=== PATIENT | male | born 1985 ===

== ENCOUNTER 2020-09-08 18:24 | Emergency (ER) | payer OTHER, SELFPAY ==
--- NOTE | ~2020-09-08 | XR_ITS ---
EXAMINATION: XR HAND, RIGHT CLINICAL INFORMATION: Right pinky finger injury COMPARISON: None TECHNIQUE: PA, lateral, and oblique views of the right hand. FINDINGS: The small finger is dorsomedially dislocated at the level of the PIP joint with 5 mm of foreshortening no acute fractures are identified. The proximal and middle phalanges appear intact. No additional malalignment. Joints appear relatively well-preserved. XR/XR hand RT min 3V IMPRESSION: Dorsal/ulnar dislocation of the small finger occurring at the PIP joint.
[2020-09-08 18:25] VITALS: BP 129/82; PULSE 78; RESP 18; TEMP 36.6; O2SAT 96; BMI 36.1
[2020-09-08] MEDS: Lidocaine HCl 1 % MPF 5 ML VIAL SUBCUT ×2 (19:31)
--- NOTE | 2020-09-08 20:16 | ED.LOWEXIN ---
HPI - Extremity Injury (Lower) General Chief Complaint: Extremity Injury, Lower Stated Complaint: finger inj Time Seen by Provider: 09/08/20 19:15 History of Present Illness HPI Narrative: Patient complains of dislocated left pinky in football, no numbness or weakness no tingling no other injury Related Data Previous Rx's Medication Instructions Recorded nebulizer accessories (A.I.R.S #1 ea 06/18/20 Nebulizer Replacement) Allergies Allergy/AdvReac Type Severity Reaction Status Date / Time No Known Allergies Allergy Verified 09/08/20 18:25 Review of Systems Review of Systems: Positive for pinky dislocation Negatives are no head injury no neck pain no chest pain no shortness of breath no abdominal pain no numbness weakness or tingling Yes all other systems are reviewed and are negative PMFSH Past Medical History Source: nursing notes reviewed Medical History (Updated 09/09/20 @ 00:01 by Jeison Subramanian) Asthma Social History Social History Advance Directives: No Advance Directives Information Provided: No Physical Exam Vital Signs: Vital Signs: Last Vital Signs Temp 97.8 F 09/08/20 18:25 Pulse 78 09/08/20 18:25 Resp 18 09/08/20 18:25 BP 129/82 09/08/20 18:25 Pulse Ox 96 09/08/20 18:25 Body Mass Index 36.1 General appearance is no acute distress Head is normocephalic atraumatic Neck supple nontender Respiratory no distress Chest wall no tenderness Back full range of motion Left pinky exam shows a dislocation, neurovascular intact distal Other extremities no swelling deformity, full range of motion and gait is normal Course Course Course Narrative: X-ray showed a dorsal ulnar dislocation of the left pinky at the PIP joint Digital block with 6 cc of lidocaine was done and then using traction the finger was put back in its place, range of motion was normal after neurovascular intact after and an aluminum foam splint was applied Discharge Plan Discharge Clinical Impression: Dislocated finger Patient Disposition: Home, Self-Care Additional Instructions: The finger is back in place follow with orthopedic hand doctor Return any time any concerns Prescriptions: No Action (DME) A.I.R.S Nebulizer Replacement Kit See Rx Instructions .ROUTE .MEDSUPPLY Qty: 1 RF: 0 Referrals: Meenu Woody MD [Physician] - 2 days (Dislocated finger, reduced) Interventions: ED Discharge Assessment Last Done: 09/08/20 20:41 Discharge Date/Time: 09/08/20 20:43
== END 2020-09-08 20:43 | disposition home or self-care (01) ==
PROVIDERS: Emergency Provider Emergency Medicine Emergency Medical Services; PCP Internal Medicine
DX: S63.256A Unspecified dislocation of right little finger, initial encounter (principal); W50.0XXA Accidental hit or strike by another person, initial encounter; Y93.61 Activity, american tackle football; Y92.9 Unspecified place or not applicable; Y99.9 Unspecified external cause status
CPT/HCPCS: 26770; 73130; 99283; 99284

== ENCOUNTER 2020-10-11 06:02 | Emergency (ER) | payer OTHER, SELFPAY ==
--- NOTE | ~2020-10-11 | XR_ITS ---
EXAMINATION: XR CHEST CLINICAL INFORMATION: Shortness of breath. Upper back pain. COMPARISON: None TECHNIQUE: Frontal portable view of the chest was obtained. 6:20 AM FINDINGS: No significant abnormality is noted involving the heart, lungs, mediastinum, bony thorax or soft tissues. XR/XR chest 1V IMPRESSION: Unremarkable examination.
[2020-10-11 06:17] VITALS: BP 128/78; PULSE 72; RESP 16; TEMP 36.4; O2SAT 97; BMI 37.8
[2020-10-11 07:00] LABS: COVID-19 Test Negative (Negative)
--- NOTE | 2020-10-11 07:07 | ED_ITS ---
HPI - General Adult General Chief complaint: Dyspnea Stated complaint: back pain/SOB Time Seen by Provider: 10/11/20 06:25 Source: patient Mode of arrival: ambulatory Limitations: no limitations History of Present Illness HPI narrative: Patient comes emergency room complaining of pain in the scapular area on the right side. Patient states it all started yesterday. Patient denies any injury. Patient states that if he moves his shoulder a certain way or makes his scapula be moved, that is when the pain starts. Also complaining of pain if he lies on his right side. Patient states that turning in bed was painful. Otherwise, no chest pain, no shortness of breath. Related Data Previous Rx's Medication Instructions Recorded nebulizer accessories (A.I.R.S #1 ea 06/18/20 Nebulizer Replacement) cyclobenzaprine 10 mg tablet 10 mg PO TID PRN #7 tab 10/11/20 ibuprofen 600 mg tablet 600 mg PO Q6H PRN #10 tab 10/11/20 Allergies Allergy/AdvReac Type Severity Reaction Status Date / Time No Known Allergies Allergy Verified 09/08/20 18:25 Review of Systems Review of Systems: Constitutional : No Weight loss, No Fever, No Chills, No Night Sweats, No Fatigue, No Malaise ENT/Mouth : No Hearing loss, No Ear Pain, No Nasal Congestion, No Sinus Pain, No Hoarseness, No sore throat, No Rhinorrhea, No Swallowing Difficulty Eyes: No Eye Pain, No Swelling, No Redness, No Foreign Body, No Discharge, No Vision Changes Cardiovascular : No Chest Pain, No SOB, No Dyspnea on Exertion, No Orthopnea, No Edema, No Palpitations Respiratory : No Cough, No Sputum, No Wheezing, No Smoke Exposure, No Dyspnea Gastrointestinal : No Nausea, No Vomiting, No Diarrhea, No Constipation, No abdominal Pain, No Hematochezia, No Melena Genitourinary : no irregular bleeding, No Dysuria, No Urinary Frequency, No Hematuria, No Urinary Incontinence, No Urgency, No Flank Pain, No Urinary Flow Changes, No Hesitancy Musculoskeletal : Complaining of right scapular and suprascapular pain movement. No Myalgias, No Joint Swelling Skin : No Skin Lesions, No rash Neuro : No Weakness, No Numbness, No Paresthesias, No Loss of Consciousness, No Dizziness, No Headache Psych : No Anxiety/Panic, No Depression, No SI/HI/AH/VH, No Social Issues, Heme/Lymph: No Bruising, No Bleeding,No Lymphadenopathy Endocrine : No Polyuria, No Polydipsia, No Temperature Intolerance [facility] Past Medical History Medical History Asthma Social History Social History Advance Directives: No Advance Directives Information Provided: No Physical Exam Vital Signs: Vital Signs: Last Vital Signs Temp 97.6 F 10/11/20 06:17 Pulse 72 10/11/20 06:17 Resp 16 10/11/20 06:17 BP 128/78 10/11/20 06:17 Pulse Ox 97 10/11/20 06:17 Body Mass Index 37.8 Course Course Course Narrative: Patient tested negative for COVID, no abnormalities in the chest x-ray. Patient's physical exam was discussed with him, likely musculoskeletal pain. At this time, PE is not suspected. Medical Decision Making Lab Data Labs: Lab Results 10/11/20 Range/Units 06:38 COVID-19 (KIRAN) Negative (Negative) COVID-19 Clin Com See Note Imaging Data Chest x-ray: Radiologist's impression: FINDINGS: No significant abnormality is noted involving the heart, lungs, mediastinum, bony thorax or soft tissues. XR/XR chest 1V IMPRESSION: Unremarkable examination. Discharge Plan Discharge Clinical Impression: Musculoskeletal back pain Patient Disposition: Home, Self-Care Instructions: Back Pain (ED) Additional Instructions: Please follow-up with your primary care physician tomorrow. If you have any worsening or new symptoms, please return to the emergency room or call 911 Prescriptions: New ibuprofen 600 mg tablet 600 mg PO Q6H PRN (Reason: pain) Qty: 10 RF: 0 cyclobenzaprine 10 mg tablet 10 mg PO TID PRN (Reason: muscle spasm) Qty: 7 RF: 0 No Action (DME) A.I.R.S Nebulizer Replacement Kit See Rx Instructions .ROUTE .MEDSUPPLY Qty: 1 RF: 0
[2020-10-11 07:58] VITALS: BP 129/79; PULSE 67; RESP 16; O2SAT 98
[2020-10-11] MEDS: Ibuprofen 600 MG TABLET PO (07:58)
== END 2020-10-11 08:01 | disposition home or self-care (01) ==
PROVIDERS: Emergency Provider Emergency Medicine; PCP Internal Medicine
DX: R06.02 Shortness of breath (principal); M54.5 Low back pain; Z20.822 Contact with and (suspected) exposure to COVID-19; Z79.899 Other long term (current) drug therapy
CPT/HCPCS: 36415; 71045; 87635; 99283

== ENCOUNTER 2021-04-24 08:29 | Emergency (ER) | payer OTHER, SELFPAY ==
--- NOTE | 2021-04-24 | ECG_ITS ---
Test Reason : cp Blood Pressure : / mmHG Vent. Rate : 064 BPM Atrial Rate : 064 BPM P-R Int : 144 ms QRS Dur : 098 ms QT Int : 384 ms P-R-T Axes : 068 078 044 degrees QTc Int : 396 ms Normal sinus rhythm Normal ECG When compared with ECG of 21-JUN-2002 15:25, No significant changes seen Referred By: Helen Fierro Electronically Signed By:ELIAN MCGOWAN
--- NOTE | ~2021-04-24 | XR_ITS ---
EXAMINATION: XR CHEST CLINICAL INFORMATION: Pleuritic chest pain COMPARISON: October 11, 2020 TECHNIQUE: 2 views of the chest were obtained. FINDINGS: No significant abnormality is noted involving the heart, lungs, mediastinum, bony thorax or soft tissues. XR/XR chest 2V IMPRESSION: No acute disease.
[2021-04-24 08:30] VITALS: BP 145/92; PULSE 73; RESP 17; TEMP 36.5; O2SAT 99; BMI 37.9
--- NOTE | 2021-04-24 08:36 | ED.CHESTPAIN ---
HPI - Chest Pain General Chief Complaint: Chest Pain Stated Complaint: chest pain Time Seen by Provider: 04/24/21 09:41 Source: patient Mode of arrival: ambulatory Limitations: no limitations History of Present Illness HPI narrative: 35-year-old male with no past medical history presents to the ED for chest pain described as stabbing and pleurisy that began this morning. Patient states he is getting over cold with some coughing with some phlegm. Patient denies any lower extremity swelling, calf pain, coughing up blood, recent trauma, history of blood clots, or any history of drug use. Patient states she traveled from floor to 2 weeks ago. Patient vaccinated with [employer] but no booster. Related Data Previous Rx's Medication Instructions Recorded nebulizer accessories (A.I.R.S #1 ea 06/18/20 Nebulizer Replacement) cyclobenzaprine 10 mg tablet 10 mg PO TID PRN #7 tab 10/11/20 ibuprofen 600 mg tablet 600 mg PO Q6H PRN #10 tab 10/11/20 benzonatate 100 mg capsule 100 mg PO TID PRN 5 Days #15 cap 04/24/21 naproxen 500 mg tablet,delayed 500 mg PO BID PRN 10 Days #20 tab 04/24/21 release Allergies Allergy/AdvReac Type Severity Reaction Status Date / Time No Known Allergies Allergy Verified 09/08/20 18:25 Review of Systems Review of Systems: Chest pain with pleurisy. Cough with phlegm. Yes all other systems are reviewed and are negative PMFSH Past Medical History Medical History Asthma Social History Social History Advance Directives: No Advance Directives Information Provided: No Physical Exam Vital Signs: Vital Signs: Last Vital Signs Temp 97.7 F 04/24/21 08:30 Pulse 66 04/24/21 11:17 Resp 18 04/24/21 11:17 BP 131/80 04/24/21 11:17 Pulse Ox 99 04/24/21 11:17 BMI result Body Mass Index 37.9 Const: General: cooperative, healthy appearing, comfortable, no acute distress, well developed, alert, awake and Physically active Orientation/consciousness: patient oriented x3 HENMT: Head: Yes normal to inspection, Yes No palpable skull fracture present, Yes normocephalic, Yes atraumatic and No abrasion Eyes: General: appearance normal, both eyes and all related structures Neck: Neck: Yes normal visual inspection, Yes full ROM, Yes no lymphadenopathy, Yes no meningeal signs, Yes trachea midline, Yes supple, No anterior neck swelling and No tender Chest: Other: Positive for left-sided chest wall tenderness on palpation. Chest palpation & inspection: normal inspection of the chest Chest/axillae images: 1. Positive for chest wall tenderness on palpation. Negative for rash. Negative for crepitus, ecchymosis, erythema Resp: Effort & Inspection: normal respiratory effort and able to speak in complete sentences Auscultation: clear to auscultation bilaterally Cardio: Jugular venous distension: no JVD Heart sounds: S1 normal heart sound present and S2 normal heart sound present GI: Inspection: Yes normal to inspection and No abdominal wall ecchymosis Palpation (GI): Soft to palpation, not firm, nontender, no guarding and not rigid : General: No CVA tenderness and Yes no CVA tenderness Back/Spine/Pelvis: Back: no CVA tenderness, No CVA tenderness and No back tenderness Skin: General skin exam: no rashes or lesions noted and elasticity normal Neuro: General: patient oriented x3, gait normal, no meningeal signs and CN's II-XI intact bilaterally Cranial nerves: Yes CN's II-XII intact bilaterally Extrem: Other: Lower extremities negative for swelling, pitting edema, calf tenderness General: Yes normal to inspection and Yes full ROM Psych: Appearance: grossly normal, well kempt and not disheveled Course Course Course Narrative: Patient had pleuritic chest pain with URI most likely costochondritis, but will do labs including EKG, troponin, SARS, and D-dimer. We will start with Toradol IV for chest wall pain relief and pleurisy. Reevaluation(s) Reevaluation #1: Patient states pleuritic chest pain and chest wall tenderness improved after receiving Toradol. EKG negative STEMI. First troponin negative. D-dimer negative. SARs negative. Will do repeat troponin. Chest x-ray negative for pneumonia. Time: 11:58 Reevaluation #2: Patient's 2nd troponin negative. Patient is sent for discharge. Perc score 0. Hear T Score 0. Time: 14:05 MDM - Chest Pain MDM Narrative Medical decision making narrative: URI. Costochondritis Lab Data Result diagrams: 04/24/21 09:22 04/24/21 09:22 Labs: Lab Results 04/24/21 04/24/21 04/24/21 Range/Units 09:22 09:22 09:22 WBC 2.7 L (4.8-10.8) X10*3/uL RBC 4.96 (4.60-5.80) X10*6/uL Hgb 15.4 (14.0-18.0) g/dl Hct 43.6 (42.0-52.0) % MCV 87.9 (80.0-98.0) fL MCH 31.0 (27.0-33.0) pg MCHC 35.3 (31.0-36.0) g/dl RDW 12.7 (11.0-16.0) % Plt Count 208 (160-400) X10*3/uL MPV 9.9 (9.4-12.4) fL Immature Gran % (Auto) 0.4 (0.0-0.4) % Neut % (Auto) 48.6 (45-73) % Lymph % (Auto) 32.1 (20-40) % [place] % (Auto) 12.5 H (2-11) % Eos % (Auto) 5.3 H (0-4) % Baso % (Auto) 1.1 (0-2) % Lymph # (Auto) 0.9 L (1.2-4.9) X10*3/uL [place] # (Auto) 0.3 (0.1-1.2) X10*3/uL Eos # (Auto) 0.1 (0.0-0.4) X10*3/uL Baso # (Auto) 0.0 (0.0-0.2) X10*3/uL Abs Immat Gran (auto) 0.01 (0.00-0.03) X10*3/uL Absolute Neuts (auto) 1.3 L (2.0-8.3) x10*3/uL Absolute Nucleated RBC 0.000 (0.0-0.012) X10*3/uL Nucleated RBC % (auto) 0.0 (0.0-0.2) /100WBC PT 12.4 (9.9-13.0) SEC INR 1.1 (0.9-1.1) APTT 44.2 H (24.1-38.0) SEC D-Dimer High Sensitivty < 150 NG/ML Sodium 139 (135-145) mmol/L Potassium 4.7 (3.3-5.1) mmol/L Chloride 105 (96-108) mmol/L Carbon Dioxide 28 (22-29) mmol/L Anion Gap 11 L (12-20) BUN 10 (9-16) mg/dL Creatinine 1.20 (0.5-1.4) mg/dL Estim Creat Clear Calc 99.2 Estimated GFR > 60 Random Glucose 98 (60-115) mg/dL Calcium 9.7 (8.4-10.2) mg/dL Ferritin 289 H (20-250) ng/mL Total Bilirubin 0.6 (0.0-1.0) mg/dL AST 14 (5-37) U/L ALT 21 (0-40) U/L Alkaline Phosphatase 73 (39-117) U/L Lactate Dehydrogenase 175 (118-273) U/L Troponin I High Sens (<3.5-35.0) ng/L Total Protein 6.7 (6.5-8.0) g/dL Albumin 4.1 (3.5-5.0) g/dL Lipase 12 (8-78) U/L Procalcitonin ng/mL Influenza Type A (PCR) (Negative) Influenza Type B (PCR) (Negative) RSV RNA Qual (PCR) (Negative) SARS-CoV-2 RNA (RT-PCR) (Negative) 04/24/21 04/24/21 04/24/21 Range/Units 09:22 09:22 09:22 WBC (4.8-10.8) X10*3/uL RBC (4.60-5.80) X10*6/uL Hgb (14.0-18.0) g/dl Hct (42.0-52.0) % MCV (80.0-98.0) fL MCH (27.0-33.0) pg MCHC (31.0-36.0) g/dl RDW (11.0-16.0) % Plt Count (160-400) X10*3/uL MPV (9.4-12.4) fL Immature Gran % (Auto) (0.0-0.4) % Neut % (Auto) (45-73) % Lymph % (Auto) (20-40) % [place] % (Auto) (2-11) % Eos % (Auto) (0-4) % Baso % (Auto) (0-2) % Lymph # (Auto) (1.2-4.9) X10*3/uL [place] # (Auto) (0.1-1.2) X10*3/uL Eos # (Auto) (0.0-0.4) X10*3/uL Baso # (Auto) (0.0-0.2) X10*3/uL Abs Immat Gran (auto) (0.00-0.03) X10*3/uL Absolute Neuts (auto) (2.0-8.3) x10*3/uL Absolute Nucleated RBC (0.0-0.012) X10*3/uL Nucleated RBC % (auto) (0.0-0.2) /100WBC PT (9.9-13.0) SEC INR (0.9-1.1) APTT (24.1-38.0) SEC D-Dimer High Sensitivty NG/ML Sodium (135-145) mmol/L Potassium (3.3-5.1) mmol/L Chloride (96-108) mmol/L Carbon Dioxide (22-29) mmol/L Anion Gap (12-20) BUN (9-16) mg/dL Creatinine (0.5-1.4) mg/dL Estim Creat Clear Calc Estimated GFR Random Glucose (60-115) mg/dL Calcium (8.4-10.2) mg/dL Ferritin (20-250) ng/mL Total Bilirubin (0.0-1.0) mg/dL AST (5-37) U/L ALT (0-40) U/L Alkaline Phosphatase (39-117) U/L Lactate Dehydrogenase (118-273) U/L Troponin I High Sens < 3.5 (<3.5-35.0) ng/L Total Protein (6.5-8.0) g/dL Albumin (3.5-5.0) g/dL Lipase (8-78) U/L Procalcitonin < 0.02 ng/mL Influenza Type A (PCR) NEGATIVE (Negative) Influenza Type B (PCR) NEGATIVE (Negative) RSV RNA Qual (PCR) NEGATIVE (Negative) SARS-CoV-2 RNA (RT-PCR) NEGATIVE (Negative) 04/24/21 Range/Units 13:16 WBC (4.8-10.8) X10*3/uL RBC (4.60-5.80) X10*6/uL Hgb (14.0-18.0) g/dl Hct (42.0-52.0) % MCV (80.0-98.0) fL MCH (27.0-33.0) pg MCHC (31.0-36.0) g/dl RDW (11.0-16.0) % Plt Count (160-400) X10*3/uL MPV (9.4-12.4) fL Immature Gran % (Auto) (0.0-0.4) % Neut % (Auto) (45-73) % Lymph % (Auto) (20-40) % [place] % (Auto) (2-11) % Eos % (Auto) (0-4) % Baso % (Auto) (0-2) % Lymph # (Auto) (1.2-4.9) X10*3/uL [place] # (Auto) (0.1-1.2) X10*3/uL Eos # (Auto) (0.0-0.4) X10*3/uL Baso # (Auto) (0.0-0.2) X10*3/uL Abs Immat Gran (auto) (0.00-0.03) X10*3/uL Absolute Neuts (auto) (2.0-8.3) x10*3/uL Absolute Nucleated RBC (0.0-0.012) X10*3/uL Nucleated RBC % (auto) (0.0-0.2) /100WBC PT (9.9-13.0) SEC INR (0.9-1.1) APTT (24.1-38.0) SEC D-Dimer High Sensitivty NG/ML Sodium (135-145) mmol/L Potassium (3.3-5.1) mmol/L Chloride (96-108) mmol/L Carbon Dioxide (22-29) mmol/L Anion Gap (12-20) BUN (9-16) mg/dL Creatinine (0.5-1.4) mg/dL Estim Creat Clear Calc Estimated GFR Random Glucose (60-115) mg/dL Calcium (8.4-10.2) mg/dL Ferritin (20-250) ng/mL Total Bilirubin (0.0-1.0) mg/dL AST (5-37) U/L ALT (0-40) U/L Alkaline Phosphatase (39-117) U/L Lactate Dehydrogenase (118-273) U/L Troponin I High Sens < 3.5 (<3.5-35.0) ng/L Total Protein (6.5-8.0) g/dL Albumin (3.5-5.0) g/dL Lipase (8-78) U/L Procalcitonin ng/mL Influenza Type A (PCR) (Negative) Influenza Type B (PCR) (Negative) RSV RNA Qual (PCR) (Negative) SARS-CoV-2 RNA (RT-PCR) (Negative) ECG Data ECG #1: Interpretation: Normal sinus rhythm. Normal EKG. Ventricular rate 64. Pr interval 144. QRS 98. QTC 396. Negative STEMI Discharge Plan Discharge Clinical Impression: Costalchondritis, Acute upper respiratory infection, Atypical chest pain Patient Disposition: Home, Self-Care Instructions: Chest Pain (DC), Costochondritis (ED), Upper Respiratory Infection (ED), Chest Wall Pain (ED) Additional Instructions: The EKG and blood work came back negative for heart attack. The blood work came back negative for risk of pulmonary embolus. Chest x-ray negative for pneumonia. Rest of labs are normal. Annual COVID, influenza, and RSV swab was negative. Will be discharged with cough medication and naproxen. Please follow-up with primary care provider. Return to the ED immediately for leg swelling, calf pain, coughing up blood, flank pain, severe chest pain, shortness of breath, or any other concerning symptoms. Prescriptions: New naproxen 500 mg tablet,delayed release (DR/EC) 500 mg PO BID PRN (Reason: pain) 10 Days Qty: 20 0RF benzonatate 100 mg capsule 100 mg PO TID PRN (Reason: cough) 5 Days Qty: 15 0RF No Action (DME) A.I.R.S Nebulizer Replacement Kit See Rx Instructions .ROUTE .MEDSUPPLY Qty: 1 0RF Rx Instructions: As directed ibuprofen 600 mg tablet 600 mg PO Q6H PRN (Reason: pain) Qty: 10 0RF cyclobenzaprine 10 mg tablet 10 mg PO TID PRN (Reason: muscle spasm) Qty: 7 0RF Stand Alone Forms: Work/School Release Interventions: ED Discharge Assessment Last Done: 04/24/21 14:22 Discharge Date/Time: 04/24/21 14:22 Print Language: [place] Citizen
[2021-04-24] MEDS: Ketorolac Tromethamine 30 MG/ML VIAL IVPUSH (09:29)
[2021-04-24 09:31] LABS: MANUAL DIFF FLAG NO
[2021-04-24 09:34] LABS: INTERNATIONAL NORM RATIO 1.1 (0.9-1.1); Prothrombin Time 12.4 SEC (9.9-13.0)
[2021-04-24 09:36] LABS: Basophils Percent Auto 1.1 % (0-2); Eosinophils Absolute Auto 0.1 X10*3/uL (0.0-0.4); Eosinophils Percent Auto 5.3 % (0-4); Hematocrit 43.6 % (42.0-52.0); Hemoglobin 15.4 g/dl (14.0-18.0); Imm Gran Abs Auto 0.01 X10*3/uL (0.00-0.03); Imm Gran Pct Auto 0.4 % (0.0-0.4); Lymphocytes Absolute Auto 0.9 X10*3/uL (1.2-4.9); Lymphocytes Percent Auto 32.1 % (20-40); Mean Corpuscular HGB Conc 35.3 g/dl (31.0-36.0); Mean Corpuscular Volume 87.9 fL (80.0-98.0); Mean Platelet Volume 9.9 fL (9.4-12.4); Monocytes Absolute Auto 0.3 X10*3/uL (0.1-1.2); Monocytes Percent Auto 12.5 % (2-11); Neutrophils Absolute Auto 1.3 x10*3/uL (2.0-8.3); Neutrophils Percent Auto 48.6 % (45-73); Partial Thromboplastin Time 44.2 SEC (24.1-38.0); Platelet Count 208 X10*3/uL (160-400); Red Blood Count 4.96 X10*6/uL (4.60-5.80); Red Cell Distribution Width 12.7 % (11.0-16.0); White Blood Count 2.7 X10*3/uL (4.8-10.8)
[2021-04-24 09:38] LABS: D Dimer High Sensitivity < 150 NG/ML
[2021-04-24 09:46] LABS: Alanine Aminotransferase 21 U/L (0-40); Albumin Level 4.1 g/dL (3.5-5.0); Alkaline Phosphatase 73 U/L (39-117); Anion Gap 11 (12-20); Aspartate Amino Transferase 14 U/L (5-37); Bilirubin Total 0.6 mg/dL (0.0-1.0); Blood Urea Nitrogen 10 mg/dL (9-16); Calcium 9.7 mg/dL (8.4-10.2); Carbon Dioxide 28 mmol/L (22-29); Chloride 105 mmol/L (96-108); Creatinine Clr Calc Pharmacy 99.2; Estimated Glomerular Filt Rate > 60; Glucose Random 98 mg/dL (60-115); Lactate Dehydrogenase 175 U/L (118-273); Lipase 12 U/L (8-78); Potassium 4.7 mmol/L (3.3-5.1); Sodium 139 mmol/L (135-145); Total Protein 6.7 g/dL (6.5-8.0)
[2021-04-24 10:05] LABS: Ferritin 289 ng/mL (20-250)
[2021-04-24 10:06] LABS: Procalcitonin < 0.02 ng/mL
[2021-04-24 10:25] LABS: Influenza A PCR NEGATIVE (Negative); Influenza B PCR NEGATIVE (Negative); Resp Syncy Virus RNA Qual PCR NEGATIVE (Negative); SARS COV2 PCR INHOUSE NEGATIVE (Negative)
[2021-04-24 11:17] VITALS: BP 131/80; PULSE 66; RESP 18; O2SAT 99
[2021-04-24 11:52] LABS: Troponin-I High Sensitivity < 3.5 ng/L (<3.5-35.0)
[2021-04-24 13:47] LABS: Troponin-I High Sensitivity < 3.5 ng/L (<3.5-35.0)
== END 2021-04-24 14:22 | disposition home or self-care (01) ==
PROVIDERS: Physician Assistant; Emergency Provider Emergency Medicine; PCP Internal Medicine
DX: M94.0 Chondrocostal junction syndrome [Tietze] (principal); R07.89 Other chest pain; J06.9 Acute upper respiratory infection, unspecified; Z20.822 Contact with and (suspected) exposure to COVID-19; Z79.899 Other long term (current) drug therapy
CPT/HCPCS: 0241U; 36415; 71046; 80053; 82728; 83615; 83690; 84145; 84484; 85025; 85379; 85610; 85730; 93005; 96374; 99284; J1885

== ENCOUNTER 2022-06-29 03:09 | Emergency (ER) | payer OTHER, SELFPAY ==
--- NOTE | ~2022-06-29 | XR_ITS ---
EXAMINATION: XR THORACIC SPINE CLINICAL INFORMATION: Pain COMPARISON: None available. TECHNIQUE: 3 views of the thoracic spine were obtained. FINDINGS: There is no fracture or bone destruction seen and the vertebral alignment is normal. There is no disc space narrowing. There is no abnormality of the paraspinal soft tissues. XR/XR thoracic spine 3V IMPRESSION: Unremarkable examination.
--- NOTE | ~2022-06-29 | XR_ITS ---
EXAMINATION: XR FINGER, LEFT CLINICAL INFORMATION: Left middle finger injury COMPARISON: None available. TECHNIQUE: PA view of the hand 2 of the left long finger. FINDINGS: No acute fracture or dislocation. Soft tissue swelling about the third proximal phalanx and proximal interphalangeal joint. No radiopaque foreign bodies. XR/XR finger LT min 2V IMPRESSION: * No acute fracture or dislocation. * Soft tissue swelling about the third digit.
[2022-06-29 03:25] VITALS: BP 162/96; PULSE 75; RESP 18; TEMP 36.7; O2SAT 97; BMI 37.9
--- NOTE | 2022-06-29 03:36 | ED_ITS ---
HPI - Back Pain/Injury General Chief Complaint: Back Pain/Injury Stated Complaint: Back Pain Time Seen by Provider: 06/29/22 03:33 Source: patient Mode of arrival: ambulatory Limitations: no limitations History of Present Illness HPI Narrative: Patient comes to the emergency room complaining of upper back pain. Patient states that several weeks ago, he heard a loud pop while he was lifting weights. Then, patient was playing football, and started hurting again. Yesterday, patient played football a 2nd time, when a player went to tackle him, patient started complaining of upper back pain. Patient states he has no neck pain, no lumbar pain. This mostly the thoracic spine. Patient denies any numbness and tingling in any extremities. Related Data Previous Rx's Medication Instructions Recorded nebulizer accessories (A.I.R.S #1 ea 06/18/20 Nebulizer Replacement kit) cyclobenzaprine 10 mg tablet 10 mg PO TID PRN muscle spasm #7 10/11/20 tabs ibuprofen 600 mg tablet 600 mg PO Q6H PRN pain #10 tabs 10/11/20 benzonatate 100 mg capsule 100 mg PO TID PRN cough 5 days #15 04/24/21 caps naproxen 500 mg tablet,delayed 500 mg PO BID PRN pain 10 days #20 04/24/21 release tabs cyclobenzaprine 10 mg tablet 10 mg PO TID PRN muscle spasm #7 06/29/22 tabs ibuprofen 600 mg tablet 600 mg PO TID PRN fever or pain 06/29/22 #20 tabs Allergies Allergy/AdvReac Type Severity Reaction Status Date / Time No Known Allergies Allergy Verified 06/29/22 03:24 Review of Systems Review of Systems: Constitutional : No Weight loss, No Fever, No Chills, No Night Sweats, No Fatigue, No Malaise ENT/Mouth : No Hearing loss, No Ear Pain, No Nasal Congestion, No Sinus Pain, No Hoarseness, No sore throat, No Rhinorrhea, No Swallowing Difficulty Eyes: No Eye Pain, No Swelling, No Redness, No Foreign Body, No Discharge, No Vision Changes Cardiovascular : No Chest Pain, No SOB, No Dyspnea on Exertion, No Orthopnea, No Edema, No Palpitations Respiratory : No Cough, No Sputum, No Wheezing, No Smoke Exposure, No Dyspnea Gastrointestinal : No Nausea, No Vomiting, No Diarrhea, No Constipation, No abdominal Pain, No Hematochezia, No Melena Genitourinary : no irregular bleeding, No Dysuria, No Urinary Frequency, No Hematuria, No Urinary Incontinence, No Urgency, No Flank Pain, No Urinary Flow Changes, No Hesitancy Musculoskeletal : Complaining of upper back pain, No joint pain, No Myalgias, No Joint Swelling Skin : No Skin Lesions, No rash Neuro : No Weakness, No Numbness, No Paresthesias, No Loss of Consciousness, No Dizziness, No Headache Psych : No Anxiety/Panic, No Depression, No SI/HI/AH/VH, No Social Issues, Heme/Lymph: No Bruising, No Bleeding,No Lymphadenopathy Endocrine : No Polyuria, No Polydipsia, No Temperature Intolerance [facility] Past Medical History Medical History Asthma Social History Social History Advance Directives: No Advance Directives Information Provided: No Physical Exam Vital Signs: Vital Signs: Last Vital Signs Temp 98.1 F 06/29/22 03:25 Pulse 75 06/29/22 03:25 Resp 18 06/29/22 03:25 BP 162/96 H 06/29/22 03:25 Pulse Ox 97 06/29/22 03:25 O2 Del Method Room Air 06/29/22 03:25 BMI result Body Mass Index 37.9 Const: Other: Appearance: Alert. Oriented X3. No acute distress. Eyes: Pupils equal, round and reactive to light. ENT: Pharynx normal. Neck: Normal inspection. Neck supple. No lymph nodes noted. No crepitus CVS: Normal heart rate and rhythm. Pulses normal. Normal S1 and S2 Respiratory: No respiratory distress. Breath sounds normal. No Wheezing. No rales Abdomen: Soft and nontender. No rigidity. No distention. Back: Pain to palpation over the upper thoracic spine, no pain over the cervical or lumbar spine Skin: Skin warm and dry. Normal skin color. Normal skin turgor. Extremities: No lower extremity edema. No Lacerations. No Rash Neuro: Oriented X 3. No motor deficit. No sensory deficit. Moving all extremities. No slurred speech. CN 2 through 12 grossly intact Psych: calm, cooperative, normal affect Course Course Course Narrative: -x-rays pending -patient received 1 dose of IM Toradol Medications Administered Discontinued Medications Generic Name Dose Route Start Last Admin Trade Name Freq PRN Reason Stop Dose Admin Ketorolac Tromethamine 60 mg 06/29/22 03:35 06/29/22 03:42 Ketorolac Tromethamine 60 Mg/2 Ml Vial IM 06/29/22 03:36 60 mg ONCE ONE Administration Medical Decision Making Medical Decision Making MDM Narrative: -x-rays ordered of the finger and the thoracic back to not show any acute abnormality -pain musculoskeletal. Radiology Impression Discussion of test interpretation with radiology: I have reviewed the radiologist's reading. Radiologist Impression: FINDINGS: There is no fracture or bone destruction seen and the vertebral alignment is normal. There is no disc space narrowing. There is no abnormality of the paraspinal soft tissues. XR/XR thoracic spine 3V IMPRESSION: Unremarkable examination. FINDINGS: No acute fracture or dislocation. Soft tissue swelling about the third proximal phalanx and proximal interphalangeal joint. No radiopaque foreign bodies.? XR/XR finger LT min 2V IMPRESSION: *? No acute fracture or dislocation. *? Soft tissue swelling about the third digit. ? Discharge Plan Discharge Clinical Impression: Musculoskeletal pain Patient Disposition: Home, Self-Care Instructions: Musculoskeletal Pain (ED) Additional Instructions: Please follow-up with your primary care physician tomorrow. If you have any worsening or new symptoms, please return to the emergency room or call 911 Prescriptions: New ibuprofen 600 mg tablet 600 mg PO TID PRN (Reason: fever or pain) Qty: 20 0RF cyclobenzaprine 10 mg tablet 10 mg PO TID PRN (Reason: muscle spasm) Qty: 7 0RF No Action (DME) A.I.R.S Nebulizer Replacement Kit See Rx Instructions .ROUTE .MEDSUPPLY Qty: 1 0RF Rx Instructions: As directed ibuprofen 600 mg tablet 600 mg PO Q6H PRN (Reason: pain) Qty: 10 0RF cyclobenzaprine 10 mg tablet 10 mg PO TID PRN (Reason: muscle spasm) Qty: 7 0RF naproxen 500 mg tablet,delayed release (DR/EC) 500 mg PO BID PRN (Reason: pain) 10 Days Qty: 20 0RF benzonatate 100 mg capsule 100 mg PO TID PRN (Reason: cough) 5 Days Qty: 15 0RF
[2022-06-29] MEDS: Ketorolac Tromethamine 60 MG/2 ML VIAL IM (03:42)
== END 2022-06-29 05:42 | disposition home or self-care (01) ==
PROVIDERS: Emergency Provider Emergency Medicine
DX: M54.50 Low back pain, unspecified (principal); M79.10 Myalgia, unspecified site; M54.6 Pain in thoracic spine; M79.645 Pain in left finger(s); M79.644 Pain in right finger(s); Z79.899 Other long term (current) drug therapy
CPT/HCPCS: 72072; 73140; 96372; 99284; J1885

== ENCOUNTER 2022-09-08 07:16 | Emergency (ER) | payer OTHER, SELFPAY ==
--- NOTE | ~2022-09-08 | CT_ITS ---
EXAMINATION: CT CERVICAL SPINE WITHOUT CONTRAST CLINICAL INFORMATION: Neck pain status post injury COMPARISON: None available. TECHNIQUE: Axial sections performed and bone and soft tissue windows without IV contrast enhancement. Sagittal and coronal reconstructions performed. This CT examination was performed using dose optimization techniques as appropriate, variously including the following: *Automated exposure control *Adjustment of mA and/or kV according to patient size (this includes techniques or standardized protocols for targeted exams where dose is matched to indication/reason for exam; i.e. extremities or head) *Use of iterative reconstruction technique DLP: 709.9 mGy-cm FINDINGS: The odontoid and the condyles are unremarkable. C1 and C2 arches are intact. No evidence for acute cervical compression fracture. Pedicles and laminar structures within normal limits. No appreciable central canal stenosis. The epiglottis and the vocal cords are unremarkable. No appreciable abnormally enlarged jugulodigastric or cervical chain nodes. CT/CT cervical spine wo IV con IMPRESSION: 1. No evidence for bony fracture. 2. Other incidental findings as noted above.
--- NOTE | ~2022-09-08 | CT_ITS ---
EXAMINATION: CT FACIAL BONES WITHOUT CONTRAST CLINICAL INFORMATION: Left eye trauma COMPARISON: None available. TECHNIQUE: Axial sections performed and bone and soft tissue windows without IV contrast enhancement. Sagittal and coronal reconstructions performed. This CT examination was performed using dose optimization techniques as appropriate, variously including the following: *Automated exposure control *Adjustment of mA and/or kV according to patient size (this includes techniques or standardized protocols for targeted exams where dose is matched to indication/reason for exam; i.e. extremities or head) *Use of iterative reconstruction technique DLP: 630 mGy-cm FINDINGS: Small mucous retention cyst or polyp of the left frontal sinus. There is bilateral leyla bullosa variant. The ostiomeatal complexes are patent. Nasal bones intact. The malar and zygomatic structures are unremarkable. Orbital rims and floors within normal limits. Nasal bones and nasal spine appear intact. The globes are unremarkable. Optic nerves and extraocular muscles appear within normal limits. Intraconal structures appear intact. There is minimal mucoperiosteal thickening of the anterior sphenoid sinuses. Mandible unremarkable. There is artifact related to dental work. Nasopharyngeal mucosal space and parapharyngeal spaces unremarkable. CT/CT facial bones wo IV con IMPRESSION: 1. No evidence for bony fracture. 2. Small mucous retention cyst or polyp of the left frontal sinus. 3. Other incidental findings as noted above.
--- NOTE | ~2022-09-08 | CT_ITS ---
EXAMINATION: CT HEAD WITHOUT CONTRAST CLINICAL INFORMATION: Headache, status post head injury COMPARISON: None available. TECHNIQUE: Contiguous axial imaging was performed from the skull base to vertex without intravenous administration of contrast. This CT examination was performed using dose optimization techniques as appropriate, variously including the following: *Automated exposure control *Adjustment of mA and/or kV according to patient size (this includes techniques or standardized protocols for targeted exams where dose is matched to indication/reason for exam; i.e. extremities or head) *Use of iterative reconstruction technique DLP: 748.2 mGy-cm FINDINGS: No evidence for acute hemorrhage or mass effect. Cisterns unremarkable. Esparza/white matter differentiation is maintained. No evidence for extra-axial collections. The mastoids are well aerated. Skull base unremarkable. No calvarial disruption. CT/CT head/brain wo IV con IMPRESSION: No evidence for acute process.
[2022-09-08 07:20] VITALS: BP 140/97; PULSE 63; RESP 16; TEMP 36.5; O2SAT 99; BMI 37.5
--- NOTE | 2022-09-08 08:11 | ED_ITS ---
HPI - Head Injury General Chief complaint: Head Injury Stated complaint: l side facial inj Time Seen by Provider: 09/08/22 07:25 Source: patient Mode of arrival: ambulatory Limitations: no limitations History of Present Illness HPI Narrative: 36 yo male with history of asthma presents to the ER for evaluation of headache and neck pain after he got injured while playing football with his friends 2 days ago. He states he and a friend went to go for the ball and they collided, hitting heads. He denies losing consciousness at the time but was very dizzy when he got up after. He has had a persistent headache since then. He states the headache starts on the left side and wraps around to the back of his head. He also reports posterior neck pain on the right, worse with movement of the head. He has bruising and swelling to the left eye, improved with ice at home. No pain with eye movement. He reports ongoing nausea but no vomiting, confusion, lethargy. MD Complaint: head injury Onset (ago): day(s) (2) Mechanism of Injury: sports related injury Place: outdoors Loss of Consciousness: no Location of injury: face Severity: moderate Severity scale (1-10): 6 Quality: dull and aching Radiation: neck Other Injuries: none Associated symptoms: nausea and neck pain Related Data Previous Rx's Medication Instructions Recorded nebulizer accessories (A.I.R.S #1 arlene 06/18/20 Nebulizer Replacement kit) cyclobenzaprine 10 mg tablet 10 mg PO TID PRN muscle spasm #7 10/11/20 tabs ibuprofen 600 mg tablet 600 mg PO Q6H PRN pain #10 tabs 10/11/20 benzonatate 100 mg capsule 100 mg PO TID PRN cough 5 days #15 04/24/21 caps naproxen 500 mg tablet,delayed 500 mg PO BID PRN pain 10 days #20 04/24/21 release tabs cyclobenzaprine 10 mg tablet 10 mg PO TID PRN muscle spasm #7 06/29/22 tabs ibuprofen 600 mg tablet 600 mg PO TID PRN fever or pain 06/29/22 #20 tabs cyclobenzaprine 10 mg tablet 10 mg PO TID PRN muscle spasm #14 09/08/22 tabs lidocaine 5 % topical patch 1 patch topical DAILY #15 ea 09/08/22 naproxen 500 mg tablet 500 mg PO BID PRN pain #20 tabs 09/08/22 Allergies Allergy/AdvReac Type Severity Reaction Status Date / Time No Known Allergies Allergy Verified 06/29/22 03:24 Review of Systems Review of Systems: Yes all other systems are reviewed and are negative [facility] Past Medical History Medical History Asthma Social History Social History Smoked in Last 30 Days: No Use of substances other than those prescribed or required for medical reasons: No Advance Directives: No Advance Directives Information Provided: No Physical Exam Vital Signs: Vital Signs: Last Vital Signs Temp 97.7 F 09/08/22 07:20 Pulse 54 09/08/22 08:36 Resp 20 09/08/22 08:36 BP 125/85 09/08/22 08:36 Pulse Ox 97 09/08/22 08:36 O2 Del Method Room Air 09/08/22 08:36 BMI result Body Mass Index 37.5 Appearance: Alert. Oriented X3. No acute distress. Head: normocephalic, atraumatic. Face: ecchymosis and mild swelling of the left stacey-orbital area. Eyes: Pupils equal, round and reactive to light. EOMI, no pain with extra occular movement. normal sclera and conjunctiva. tenderness of the upper/lateral left orbit. ENT: Pharynx normal. No tonsillar swelling or exudate. Neck: Normal inspection. Neck supple. paraspinous muscle tenderness on the right. pain with movement. no midline tenderness. CVS: Normal heart rate and rhythm. Pulses normal. Respiratory: No respiratory distress. Breath sounds normal. Skin: Skin warm and dry. Normal skin color. Normal skin turgor. No rashes. Extremities: No lower extremity edema. No joint swelling. Neuro/psych: Oriented X 3. No motor deficit. No sensory deficit. CN II-XII intact. Normal speech and cognition. Medications Administered Discontinued Medications Generic Name Dose Route Start Last Admin Trade Name Freq PRN Reason Stop Dose Admin Ketorolac Tromethamine 30 mg 09/08/22 09:00 09/08/22 09:26 Ketorolac Tromethamine 30 Mg/Ml Vial IM 09/08/22 09:01 30 mg ONCE ONE Administration Medical Decision Making Medical Decision Making MDM Narrative: 36 yo male presents to the ER for evaluation of headache and neck pain after he got injured while playing football with his friends 2 days ago. Ecchymosis in the periorbital area on the left. No pain with extraocular movement. CT scans were performed given his symptoms which were negative for acute injury. He was treated with toradol for headache. Will plan to d/c home with flexeril, nsaid and supportive care. return precautions were discussed. Differential Diagnosis Differential Diagnoses: The differential diagnosis associated with the presentation includes concussion without LOC, closed head injury, orbital fracture, cervical spasm, doubt SDH/epidural hematoma/SAH Admission/Observation Consideration of admission/observation: Escalation of care including admission/observation considered considered observation of this patient with persistent headache s/p head trauma Independent Interpretation I performed an independent interpretation of an: CT Scan Interpretation: reviewed - no visible brain bleed or edema, no visible fractures, agree w/ radiology read Radiology Impression Discussion of test interpretation with radiology: I have reviewed the radiologist's reading. Radiologist Impression: CT/CT head/brain wo IV con IMPRESSION: No evidence for acute process. CT/CT facial bones wo IV con IMPRESSION: 1.? No evidence for bony fracture. 2.? Small mucous retention cyst or polyp of the left frontal sinus. 3.? Other incidental findings as noted above. ?CT/CT cervical spine wo IV con IMPRESSION: 1.? No evidence for bony fracture. 2.? Other incidental findings as noted above. ? External Record Review External record reviewed: Outpatient record, Prior outpatient labs and Prior outpatient radiology Prescription Management I considered prescription management with: Pain Medication Critical Care Time Critical Care Time Critical Care Time: No Discharge Plan Discharge Clinical Impression: Concussion Patient Disposition: Home, Self-Care Instructions: Concussion (ED) Additional Instructions: Your CT scans today did not show any acute injuries. You most likely have a concussion. Treatment is rest (both mental and physcial rest) and supportive care Avoid prolonged screen time Recommend tylenol 975 mg every 8 hours Take the prescribed anti-inflammatory pain medication and muscle relaxer as needed Use ice to your eye several times per day Follow up with your doctor If you develop new or worsening symptoms call 911 or come back to the ER for further evaluation. Prescriptions: New cyclobenzaprine 10 mg tablet 10 mg PO TID PRN (Reason: muscle spasm) Qty: 14 0RF lidocaine 5 % adhesive patch,medicated 1 patch topical DAILY Qty: 15 0RF Rx Instructions: leave on most painful area for up to 12 hrs naproxen 500 mg tablet 500 mg PO BID PRN (Reason: pain) Qty: 20 0RF No Action (DME) A.I.R.S Nebulizer Replacement Kit See Rx Instructions .ROUTE .MEDSUPPLY Qty: 1 0RF Rx Instructions: As directed ibuprofen 600 mg tablet 600 mg PO Q6H PRN (Reason: pain) Qty: 10 0RF cyclobenzaprine 10 mg tablet 10 mg PO TID PRN (Reason: muscle spasm) Qty: 7 0RF naproxen 500 mg tablet,delayed release (DR/EC) 500 mg PO BID PRN (Reason: pain) 10 Days Qty: 20 0RF benzonatate 100 mg capsule 100 mg PO TID PRN (Reason: cough) 5 Days Qty: 15 0RF ibuprofen 600 mg tablet 600 mg PO TID PRN (Reason: fever or pain) Qty: 20 0RF cyclobenzaprine 10 mg tablet 10 mg PO TID PRN (Reason: muscle spasm) Qty: 7 0RF Stand Alone Forms: Work/School Release Interventions: ED Discharge Assessment Last Done: 09/08/22 09:33 Discharge Date/Time: 09/08/22 09:34
[2022-09-08 08:36] VITALS: BP 125/85; PULSE 54; RESP 20; O2SAT 97
[2022-09-08] MEDS: Ketorolac Tromethamine 30 MG/ML VIAL IM (09:26)
== END 2022-09-08 09:34 | disposition home or self-care (01) ==
PROVIDERS: Emergency Provider Emergency Medicine
DX: S06.0X0A Concussion without loss of consciousness, initial encounter (principal); W51.XXXA Accidental striking against or bumped into by another person, initial encounter; Y93.61 Activity, american tackle football; Y92.9 Unspecified place or not applicable; Y99.9 Unspecified external cause status
CPT/HCPCS: 70450; 70486; 72125; 96372; 99284; J1885